=== PATIENT | male | born 1970 | race Caucasian/White ===

== ENCOUNTER 2018-03-12 07:02 | Emergency (ER) | payer OTHER ==
[~2018-03-12] VITALS: Ht 180.3 cm; Wt 88.5 kg
[~2018-03-12 07:02] MED LIST: NAPR550 PO; OXYACE5T PO; PROACE100 PO; PROM25 PO; RXNAPNA550 PO; RXPROACE PO; RXPROM25 PO
[2018-03-12] MEDS ORDERED: METCAR500 PO (07:25)
[2018-03-12] MEDS ORDERED: Zantac150 MG PO (07:25)
[2018-03-12] MEDS ORDERED: IBUP400 PO (07:28)
[2018-03-12] MEDS ORDERED: HYDR1TAB94 PO (07:28)
== END 2018-03-12 08:10 | disposition home or self-care (01) ==
LOC: ER 07:02
DX: M25.511 Pain in right shoulder (principal); Z88.5 Allergy status to narcotic agent
CPT/HCPCS: 99283